=== PATIENT | male | born 1960 | race Caucasian/White ===

== ENCOUNTER 2017-01-11 14:03 | Inpatient (IN) | payer OTHER ==
[~2017-01-11] VITALS: Ht 177.8 cm; Wt 91.5 kg
[2017-01-11] MEDS ORDERED: PROP20 PO (14:18)
[2017-01-11 15:34] LABS: BASOPHILS % (AUTO) 0.8 % (0.0-2.0); EOSINOPHILS % (AUTO) 3.9 % (1.0-6.0); HEMATOCRIT 42.4 % (41-53); HEMOGLOBIN 13.6 g/dL (13.5-17.5); LYMPHOCYTES # (AUTO) 2.1 K/uL (1.0-4.8); LYMPHOCYTES % (AUTO) 38.1 % (22.0-44.0); MEAN CORPUSCULAR HEMOGLOBIN 31.4 pg (26.0-34.0); MEAN CORPUSCULAR HGB CONC 32.2 G/dL (31.0-37.0); MEAN CORPUSCULAR VOLUME 98 fL (80-100); MONOCYTES # (AUTO) 0.8 K/uL (0.1-1.0); MONOCYTES % (AUTO) 14.3 % (2.0-9.0); NEUTROPHILS # (AUTO) 2.4 K/uL (1.8-7.7); NEUTROPHILS % (AUTO) 42.9 % (40.0-70.0); PLATELET COUNT (AUTO) 115 K/uL (150-450); RED BLOOD CELL COUNT(AUTO) 4.34 MIL/uL (4.50-5.90); RED CELL DISTRIBUTION WIDTH 17.7 % (11.5-14.5); WHITE BLOOD COUNT (AUTO) 5.6 K/uL (4.5-11.0)
[2017-01-11 15:40] LABS: ANION GAP 9 mmol/L (8-16); CALCIUM, TOTAL 7.8 mg/dL (8.8-10.5); CARBON DIOXIDE 23 mmol/L (22-29); CHLORIDE 109 mmol/L (98-107); CREATININE 1.12 mg/dL (0.60-1.30); GLOMERULAR FILTR. RATE CALC > 60 mL/min (>60); POTASSIUM 3.9 mmol/L (3.5-5.1); SODIUM SERUM 141 mmol/L (136-145); UREA NITROGEN, BLOOD 6 mg/dL (7-18)
[2017-01-11 15:42] LABS: INR 1.3 (0.9-1.1); PROTHROMBIN TIME 13.4 SEC (9.4-11.6)
[2017-01-11 15:47] LABS: AMMONIA 207 umol/L (11-32)
[2017-01-11 15:48] LABS: TROPONIN I < 0.02 ng/mL (0.00-0.05)
[2017-01-11] MEDS ORDERED: LACTULOSE 20 GM/30 ML SOLUTION UDCUP PO ONE (16:00)
[2017-01-11 16:05] LABS: APPEARANCE,URINE CLEAR (CLEAR); GLUCOSE, URINE (UA) NEGATIVE (NEGATIVE); KETONES,URINE NEGATIVE (NEGATIVE); LEUKOCYTE ESTERASE ,URINE SMALL (NEGATIVE); PH,URINE 7.5 (5.0-8.0); PROTEIN,URINE NEGATIVE (NEGATIVE)
[2017-01-11 16:05] LABS: ALANINE AMINOTRANSFERASE 46 U/L (12-78); ASPARTATE AMINOTRANSFERASE 91 U/L (15-37); CREATINE KINASE MB 2.7 ng/mL (0-5); CREATINE KINASE, TOTAL 248 U/L (39-308); TOTAL PROTEIN, SERUM 6.1 g/dL (6.4-8.2)
[2017-01-11 16:13] LABS: ADD UA MICROSCOPIC YES; OCCULT BLOOD,URINE TRACE (NEGATIVE)
[2017-01-11 16:14] LABS: SQUAMOUS EPITHELIAL CELL,UR Rare /LPF (None Seen)
[2017-01-11 16:27] LABS: RBC MORPHOLOGY COMMENT ABNORMAL RBC MORPH
[2017-01-11] MEDS ORDERED: ONDANSETRON HCL 4 MG/2 ML VIAL IVP PRN ×2 (16:45→18:45)
[2017-01-11 17:28] VITALS: BP 138/93
[2017-01-11] MEDS ORDERED: MAGNESIUM HYDROXIDE SUSPENSION 30 ML UDCUP PO PRN (18:45)
[2017-01-11] MEDS ORDERED: 0.9% SODIUM CHLORIDE 10 ML SYRINGE IVP PRN (18:45)
[2017-01-11] MEDS: PANTOPRAZOLE SODIUM 40 MG/VIAL IVP SCH (19:02)
[2017-01-11] MEDS: PROPRANOLOL HCL 20 MG TABLET PO SCH (19:02)
[2017-01-11] MEDS: LACTULOSE 20 GM/30 ML SOLUTION UDCUP PO SCH ×2 (19:02→23:44)
[2017-01-11 19:52] VITALS: BP 147/95
[2017-01-11] MEDS ORDERED: SODIUM CHLORIDE 0.9% 250 ML IV ONE (20:08)
[2017-01-11] MEDS: CefTRIAXone 1 GM/DEXTROSE 50 ML IV SCH (20:26)
[2017-01-11] MEDS: DOCUSATE SODIUM 100 MG CAPSULE PO SCH (20:26)
[2017-01-12 00:15] VITALS: BP 144/88
[2017-01-12 04:18] VITALS: BP 128/63
[2017-01-12] MEDS: LACTULOSE 20 GM/30 ML SOLUTION UDCUP PO SCH ×4 (06:19→23:44)
[2017-01-12 07:04] LABS: BASOPHILS # (AUTO) 0.03 K/uL (0.00-0.20); BASOPHILS % (AUTO) 0.5 % (0.0-2.0); EOSINOPHILS # (AUTO) 0.22 K/uL (0.00-0.70); EOSINOPHILS % (AUTO) 4.12 % (1.0-6.0); HEMATOCRIT 39.6 % (41-53); HEMOGLOBIN 13.2 g/dL (13.5-17.5); LYMPHOCYTES # (AUTO) 1.7 K/uL (1.0-4.8); LYMPHOCYTES % (AUTO) 31.9 % (22.0-44.0); MEAN CORPUSCULAR HEMOGLOBIN 32.6 pg (26.0-34.0); MEAN CORPUSCULAR HGB CONC 33.4 G/dL (31.0-37.0); MEAN CORPUSCULAR VOLUME 98 fL (80-100); MONOCYTES # (AUTO) 0.5 K/uL (0.1-1.0); MONOCYTES % (AUTO) 9.3 % (2.0-9.0); NEUTROPHILS # (AUTO) 2.8 K/uL (1.8-7.7); NEUTROPHILS % (AUTO) 54.1 % (40.0-70.0); PLATELET COUNT (AUTO) 118 K/uL (150-450); RED BLOOD CELL COUNT(AUTO) 4.05 MIL/uL (4.50-5.90); RED CELL DISTRIBUTION WIDTH 17.7 % (11.5-14.5); WHITE BLOOD COUNT (AUTO) 5.2 K/uL (4.5-11.0)
[2017-01-12 07:27] VITALS: BP 101/64
[2017-01-12 07:33] LABS: ANION GAP 8 mmol/L (8-16); CALCIUM, TOTAL 7.6 mg/dL (8.8-10.5); CARBON DIOXIDE 21 mmol/L (22-29); CHLORIDE 114 mmol/L (98-107); CREATININE 0.96 mg/dL (0.60-1.30); GLOMERULAR FILTR. RATE CALC > 60 mL/min (>60); POTASSIUM 3.8 mmol/L (3.5-5.1); SODIUM SERUM 143 mmol/L (136-145); UREA NITROGEN, BLOOD 5 mg/dL (7-18)
[2017-01-12] MEDS: PROPRANOLOL HCL 20 MG TABLET PO SCH (08:15)
[2017-01-12] MEDS: PANTOPRAZOLE SODIUM 40 MG/VIAL IVP SCH (08:15)
[2017-01-12] MEDS: DOCUSATE SODIUM 100 MG CAPSULE PO SCH ×3 (08:15→20:05)
[2017-01-12 10:23] LABS: RBC MORPHOLOGY COMMENT ABNORMAL RBC MORPH
[2017-01-12 11:36] VITALS: BP 154/76
[2017-01-12 15:40] VITALS: BP 132/80
[2017-01-12] MEDS: RIFAXIMIN 550 MG TABLET PO SCH ×2 (16:21→20:04)
[2017-01-12] MEDS: CefTRIAXone 1 GM/DEXTROSE 50 ML IV SCH (17:36)
[2017-01-12 19:29] VITALS: BP 131/85
[2017-01-13 00:30] VITALS: BP 126/75
[2017-01-13 04:30] VITALS: BP 129/85
[2017-01-13] MEDS: LACTULOSE 20 GM/30 ML SOLUTION UDCUP PO SCH ×3 (05:50→18:22)
[2017-01-13 07:51] VITALS: BP 131/80
[2017-01-13] MEDS: DOCUSATE SODIUM 100 MG CAPSULE PO SCH (09:00)
[2017-01-13] MEDS: RIFAXIMIN 550 MG TABLET PO SCH ×2 (09:44→16:27)
[2017-01-13] MEDS: PROPRANOLOL HCL 20 MG TABLET PO SCH (09:44)
[2017-01-13] MEDS: PANTOPRAZOLE SODIUM 40 MG/VIAL IVP SCH (09:44)
[2017-01-13 11:29] VITALS: BP 129/74
[2017-01-13] MEDS ORDERED: CIPR-279 PO (15:03)
[2017-01-13] MEDS ORDERED: LACT30L PO (15:07)
[2017-01-13] MEDS ORDERED: RIFAX550 PO ×4 (15:10→15:17)
[2017-01-13 15:37] VITALS: BP 123/73
== END 2017-01-13 18:30 | disposition home or self-care (01) | DRG 280 ==
LOC: EMS 14:05 → 5N 16:35
PROVIDERS: ADMIT Internal Medicine; ATTEND Internal Medicine
DX: K70.40 Alcoholic hepatic failure without coma (principal); K70.30 Alcoholic cirrhosis of liver without ascites; E43 Unspecified severe protein-calorie malnutrition; D68.4 Acquired coagulation factor deficiency; N39.0 Urinary tract infection, site not specified; I10 Essential (primary) hypertension; F10.10 Alcohol abuse, uncomplicated; F15.10 Other stimulant abuse, uncomplicated; Z68.28 Body mass index [BMI] 28.0-28.9, adult; Z79.899 Other long term (current) drug therapy; Z87.891 Personal history of nicotine dependence
CPT/HCPCS: 87086; 87147; 93005; 97110; 97116; 97162; 97530; 99285; C9113; J0696; J7050

== ENCOUNTER 2017-01-21 02:15 | Inpatient (IN) | payer OTHER ==
[~2017-01-21] VITALS: Ht 172.7 cm; Wt 95.2 kg
[~2017-01-21 02:15] MED LIST: CIPR-279 PO; LACT30L PO; PROP20 PO; RIFAX550 PO
[2017-01-21 03:05] LABS: APPEARANCE,URINE CLEAR (CLEAR); GLUCOSE, URINE (UA) NEGATIVE (NEGATIVE); KETONES,URINE NEGATIVE (NEGATIVE); LEUKOCYTE ESTERASE ,URINE NEGATIVE (NEGATIVE); OCCULT BLOOD,URINE NEGATIVE (NEGATIVE); PROTEIN,URINE NEGATIVE (NEGATIVE)
[2017-01-21 03:07] LABS: ADD UA MICROSCOPIC NO
[2017-01-21 03:40] LABS: BASOPHILS % (AUTO) 1.7 % (0.0-2.0); EOSINOPHILS % (AUTO) 3.4 % (1.0-6.0); HEMATOCRIT 39.2 % (41-53); HEMOGLOBIN 12.7 g/dL (13.5-17.5); LYMPHOCYTES # (AUTO) 1.2 K/uL (1.0-4.8); LYMPHOCYTES % (AUTO) 24.2 % (22.0-44.0); MEAN CORPUSCULAR HEMOGLOBIN 32.2 pg (26.0-34.0); MEAN CORPUSCULAR HGB CONC 32.5 G/dL (31.0-37.0); MEAN CORPUSCULAR VOLUME 99 fL (80-100); MONOCYTES # (AUTO) 0.4 K/uL (0.1-1.0); MONOCYTES % (AUTO) 8.2 % (2.0-9.0); NEUTROPHILS % (AUTO) 62.5 % (40.0-70.0); PLATELET COUNT (AUTO) 100 K/uL (150-450); RED BLOOD CELL COUNT(AUTO) 3.96 MIL/uL (4.50-5.90); WHITE BLOOD COUNT (AUTO) 4.8 K/uL (4.5-11.0)
[2017-01-21 03:49] LABS: ANION GAP 9 mmol/L (8-16); CARBON DIOXIDE 23 mmol/L (22-29); CHLORIDE 111 mmol/L (98-107); CREATININE 1.13 mg/dL (0.60-1.30); GLOMERULAR FILTR. RATE CALC > 60 mL/min (>60); POTASSIUM 3.7 mmol/L (3.5-5.1); SODIUM SERUM 143 mmol/L (136-145); UREA NITROGEN, BLOOD 7 mg/dL (7-18)
[2017-01-21 03:57] LABS: ALANINE AMINOTRANSFERASE 41 U/L (12-78); ASPARTATE AMINOTRANSFERASE 88 U/L (15-37); BILIRUBIN,TOTAL 2.5 mg/dL (0.1-1.0); TOTAL PROTEIN, SERUM 5.7 g/dL (6.4-8.2)
[2017-01-21 03:58] LABS: TROPONIN I 0.02 ng/mL (0.00-0.05)
[2017-01-21 03:59] LABS: RBC MORPHOLOGY COMMENT ABNORMAL RBC MORPH
[2017-01-21] MEDS ORDERED: LACTULOSE 20 GM/30 ML SOLUTION UDCUP PO ONE (04:15)
[2017-01-21] MEDS ORDERED: ONDANSETRON HCL 4 MG/2 ML VIAL IVP PRN (04:45)
[2017-01-21] MEDS ORDERED: 0.9% SODIUM CHLORIDE 10 ML SYRINGE IVP PRN (04:45)
[2017-01-21] MEDS ORDERED: ONDANSETRON HCL 4 MG/2 ML VIAL IVP ONE (04:45)
[2017-01-21 12:01] LABS: GLUCOSE,POINT OF CARE 97 MG/DL (70-110)
[2017-01-21 20:06] VITALS: BP 124/83
[2017-01-21] MEDS: LACTULOSE 20 GM/30 ML SOLUTION UDCUP PO SCH (23:38)
[2017-01-21 23:40] VITALS: BP 113/75
[2017-01-22 04:51] VITALS: BP 131/79
[2017-01-22] MEDS: LACTULOSE 20 GM/30 ML SOLUTION UDCUP PO SCH ×4 (06:05→23:37)
[2017-01-22 06:29] LABS: BASOPHILS % (AUTO) 0.7 % (0.0-2.0); EOSINOPHILS % (AUTO) 5.7 % (1.0-6.0); HEMATOCRIT 38.9 % (41-53); HEMOGLOBIN 12.7 g/dL (13.5-17.5); LYMPHOCYTES # (AUTO) 1.9 K/uL (1.0-4.8); LYMPHOCYTES % (AUTO) 34.1 % (22.0-44.0); MEAN CORPUSCULAR HEMOGLOBIN 32.5 pg (26.0-34.0); MEAN CORPUSCULAR HGB CONC 32.5 G/dL (31.0-37.0); MEAN CORPUSCULAR VOLUME 100 fL (80-100); MONOCYTES # (AUTO) 0.6 K/uL (0.1-1.0); MONOCYTES % (AUTO) 11.3 % (2.0-9.0); NEUTROPHILS # (AUTO) 2.7 K/uL (1.8-7.7); NEUTROPHILS % (AUTO) 48.2 % (40.0-70.0); PLATELET COUNT (AUTO) 97 K/uL (150-450); RED BLOOD CELL COUNT(AUTO) 3.89 MIL/uL (4.50-5.90); RED CELL DISTRIBUTION WIDTH 17.5 % (11.5-14.5); WHITE BLOOD COUNT (AUTO) 5.6 K/uL (4.5-11.0)
[2017-01-22] MEDS ORDERED: ONDANSETRON HCL 4 MG/2 ML VIAL IVP PRN (06:45)
[2017-01-22] MEDS ORDERED: OxyCODONE HCL/ACETAMINOPHEN 5-325 MG TABLET PO PRN (06:45)
[2017-01-22] MEDS ORDERED: 0.9% SODIUM CHLORIDE 10 ML SYRINGE IVP PRN (06:45)
[2017-01-22 06:50] LABS: ANION GAP 7 mmol/L (8-16); CALCIUM, TOTAL 7.9 mg/dL (8.8-10.5); CARBON DIOXIDE 25 mmol/L (22-29); CHLORIDE 111 mmol/L (98-107); CREATININE 1.03 mg/dL (0.60-1.30); GLOMERULAR FILTR. RATE CALC > 60 mL/min (>60); POTASSIUM 3.9 mmol/L (3.5-5.1); SODIUM SERUM 143 mmol/L (136-145); UREA NITROGEN, BLOOD 6 mg/dL (7-18)
[2017-01-22 07:47] VITALS: BP 146/93
[2017-01-22] MEDS: PROPRANOLOL HCL 20 MG TABLET PO SCH (07:54)
[2017-01-22] MEDS: RIFAXIMIN 550 MG TABLET PO SCH ×2 (07:54→20:11)
[2017-01-22] MEDS: SPIRONOLACTONE 25 MG TABLET PO SCH (07:54)
[2017-01-22] MEDS: PANTOPRAZOLE SODIUM 40 MG/VIAL IVP SCH (07:54)
[2017-01-22] MEDS: DOCUSATE SODIUM 100 MG CAPSULE PO SCH ×2 (07:54→20:11)
[2017-01-22 11:40] VITALS: BP 130/85
[2017-01-22 16:02] VITALS: BP 130/77
[2017-01-22] MEDS: OxyCODONE HCL/ACETAMINOPHEN 5-325 MG TABLET PO PRN ×2 (16:12→20:12)
[2017-01-22 19:41] VITALS: BP 135/84
[2017-01-22 23:31] VITALS: BP 116/74
[2017-01-23 05:15] VITALS: BP 120/74
[2017-01-23] MEDS: LACTULOSE 20 GM/30 ML SOLUTION UDCUP PO SCH ×4 (05:26→23:41)
[2017-01-23 06:17] LABS: BASOPHILS # (AUTO) 0.05 K/uL (0.00-0.20); BASOPHILS % (AUTO) 0.9 % (0.0-2.0); EOSINOPHILS # (AUTO) 0.38 K/uL (0.00-0.70); EOSINOPHILS % (AUTO) 6.64 % (1.0-6.0); HEMATOCRIT 37.9 % (41-53); HEMOGLOBIN 12.3 g/dL (13.5-17.5); LYMPHOCYTES # (AUTO) 1.9 K/uL (1.0-4.8); LYMPHOCYTES % (AUTO) 33.7 % (22.0-44.0); MEAN CORPUSCULAR HEMOGLOBIN 32.5 pg (26.0-34.0); MEAN CORPUSCULAR HGB CONC 32.5 G/dL (31.0-37.0); MEAN CORPUSCULAR VOLUME 100 fL (80-100); MONOCYTES # (AUTO) 0.7 K/uL (0.1-1.0); MONOCYTES % (AUTO) 11.9 % (2.0-9.0); NEUTROPHILS # (AUTO) 2.7 K/uL (1.8-7.7); NEUTROPHILS % (AUTO) 46.8 % (40.0-70.0); PLATELET COUNT (AUTO) 101 K/uL (150-450); RED BLOOD CELL COUNT(AUTO) 3.79 MIL/uL (4.50-5.90); WHITE BLOOD COUNT (AUTO) 5.8 K/uL (4.5-11.0)
[2017-01-23 06:22] LABS: ANION GAP 6 mmol/L (8-16); CALCIUM, TOTAL 7.7 mg/dL (8.8-10.5); CARBON DIOXIDE 25 mmol/L (22-29); CHLORIDE 108 mmol/L (98-107); CREATININE 1.03 mg/dL (0.60-1.30); GLOMERULAR FILTR. RATE CALC > 60 mL/min (>60); POTASSIUM 3.9 mmol/L (3.5-5.1); SODIUM SERUM 139 mmol/L (136-145); UREA NITROGEN, BLOOD 5 mg/dL (7-18)
[2017-01-23 07:04] VITALS: BP 122/77
[2017-01-23 07:46] LABS: RBC MORPHOLOGY COMMENT ABNORMAL RBC MORPH
[2017-01-23] MEDS: PANTOPRAZOLE SODIUM 40 MG/VIAL IVP SCH (07:52)
[2017-01-23] MEDS: PANTOPRAZOLE SODIUM 40 MG DR TABLET PO SCH (08:58)
[2017-01-23] MEDS: SPIRONOLACTONE 25 MG TABLET PO SCH (08:58)
[2017-01-23] MEDS: PROPRANOLOL HCL 20 MG TABLET PO SCH (08:58)
[2017-01-23] MEDS: RIFAXIMIN 550 MG TABLET PO SCH ×2 (08:58→20:14)
[2017-01-23] MEDS: DOCUSATE SODIUM 100 MG CAPSULE PO SCH ×2 (08:58→20:14)
[2017-01-23] MEDS ORDERED: LACTULOSE 20 GM/30 ML SOLUTION UDCUP PO SCH (09:30)
[2017-01-23 11:18] VITALS: BP 146/80
[2017-01-23 15:32] VITALS: BP 113/66
[2017-01-23 20:10] VITALS: BP 125/79
[2017-01-23] MEDS: OxyCODONE HCL/ACETAMINOPHEN 5-325 MG TABLET PO PRN ×2 (20:14→23:41)
[2017-01-23 23:33] VITALS: BP 98/55
[2017-01-24 05:00] VITALS: BP 114/72
[2017-01-24] MEDS: LACTULOSE 20 GM/30 ML SOLUTION UDCUP PO SCH ×2 (05:44→12:32)
[2017-01-24] MEDS: OxyCODONE HCL/ACETAMINOPHEN 5-325 MG TABLET PO PRN ×2 (05:47→09:26)
[2017-01-24 07:23] VITALS: BP 132/91
[2017-01-24] MEDS: RIFAXIMIN 550 MG TABLET PO SCH (09:15)
[2017-01-24] MEDS: SPIRONOLACTONE 25 MG TABLET PO SCH (09:15)
[2017-01-24] MEDS: DOCUSATE SODIUM 100 MG CAPSULE PO SCH (09:15)
[2017-01-24] MEDS: PROPRANOLOL HCL 20 MG TABLET PO SCH (09:15)
[2017-01-24] MEDS: PANTOPRAZOLE SODIUM 40 MG DR TABLET PO SCH (09:15)
[2017-01-24 11:08] LABS: INR 1.4 (0.9-1.1)
[2017-01-24 11:54] VITALS: BP 157/99
[2017-01-24 12:00] VITALS: BP 104/53
[2017-01-24 15:36] VITALS: BP 135/96
== END 2017-01-24 17:00 | disposition home or self-care (01) | DRG 279 ==
LOC: EMS 02:16 → 6N 18:18
PROVIDERS: ADMIT Internal Medicine; ATTEND Internal Medicine
DX: K72.90 Hepatic failure, unspecified without coma (principal); E43 Unspecified severe protein-calorie malnutrition; I42.0 Dilated cardiomyopathy; D68.9 Coagulation defect, unspecified; I50.9 Heart failure, unspecified; I11.0 Hypertensive heart disease with heart failure; K70.30 Alcoholic cirrhosis of liver without ascites; R79.1 Abnormal coagulation profile; F15.10 Other stimulant abuse, uncomplicated; F10.10 Alcohol abuse, uncomplicated; Z79.899 Other long term (current) drug therapy; Z91.14 Patient's other noncompliance with medication regimen; Z68.31 Body mass index [BMI] 31.0-31.9, adult; Z87.891 Personal history of nicotine dependence
CPT/HCPCS: 70450; 82962; 87081; 93005; 96374; 99285; C9113; G0480; J2405

== ENCOUNTER 2017-02-26 12:56 | Inpatient (IN) | payer OTHER ==
[~2017-02-26] VITALS: Ht 172.7 cm; Wt 89.2 kg
[~2017-02-26 12:56] MED LIST changes: -CIPR-279 PO; -RIFAX550 PO
[2017-02-26] MEDS ORDERED: FURO40 PO (13:11)
[2017-02-26] MEDS ORDERED: RIFA200T7 PO (13:27)
[2017-02-26] MEDS ORDERED: KDUR10 PO (13:27)
[2017-02-26 14:41] LABS: BASOPHILS % (AUTO) 0.7 % (0.0-2.0); HEMATOCRIT 40.9 % (41-53); HEMOGLOBIN 13.6 g/dL (13.5-17.5); LYMPHOCYTES # (AUTO) 1.6 K/uL (1.0-4.8); MEAN CORPUSCULAR HEMOGLOBIN 32.5 pg (26.0-34.0); MEAN CORPUSCULAR HGB CONC 33.3 G/dL (31.0-37.0); MEAN CORPUSCULAR VOLUME 98 fL (80-100); MONOCYTES # (AUTO) 0.7 K/uL (0.1-1.0); MONOCYTES % (AUTO) 13.4 % (2.0-9.0); NEUTROPHILS # (AUTO) 2.5 K/uL (1.8-7.7); NEUTROPHILS % (AUTO) 48.9 % (40.0-70.0); PLATELET COUNT (AUTO) 102 K/uL (150-450); RED BLOOD CELL COUNT(AUTO) 4.19 MIL/uL (4.50-5.90); RED CELL DISTRIBUTION WIDTH 17.5 % (11.5-14.5); WHITE BLOOD COUNT (AUTO) 5.1 K/uL (4.5-11.0)
[2017-02-26 14:49] LABS: ANION GAP 9 mmol/L (8-16); CALCIUM, TOTAL 8.1 mg/dL (8.8-10.5); CARBON DIOXIDE 21 mmol/L (22-29); CHLORIDE 111 mmol/L (98-107); CREATININE 1.14 mg/dL (0.60-1.30); GLOMERULAR FILTR. RATE CALC > 60 mL/min (>60); POTASSIUM 3.7 mmol/L (3.5-5.1); SODIUM SERUM 141 mmol/L (136-145); UREA NITROGEN, BLOOD 6 mg/dL (7-18)
[2017-02-26 14:55] LABS: ALANINE AMINOTRANSFERASE 39 U/L (12-78); ASPARTATE AMINOTRANSFERASE 89 U/L (15-37); BILIRUBIN,TOTAL 3.6 mg/dL (0.1-1.0)
[2017-02-26] MEDS ORDERED: ONDANSETRON HCL 4 MG/2 ML VIAL IVP PRN (15:15)
[2017-02-26] MEDS ORDERED: LACTULOSE 20 GM/30 ML SOLUTION UDCUP PO ONE (15:30)
[2017-02-26] MEDS ORDERED: MAGNESIUM HYDROXIDE SUSPENSION 30 ML UDCUP PO PRN (16:15)
[2017-02-26] MEDS ORDERED: ALBUTEROL SULFATE 2.5 MG/0.5 ML NEB SOLUTION NEB PRN (16:15)
[2017-02-26] MEDS: PHYTONADIONE 10 MG/1 ML AMP SQ SCH (16:34)
[2017-02-26 17:33] VITALS: BP 151/96
[2017-02-26 17:50] LABS: INR 1.4 (0.9-1.1)
[2017-02-26 19:31] VITALS: BP 133/84
[2017-02-26] MEDS: DOCUSATE SODIUM 100 MG CAPSULE PO SCH (19:58)
[2017-02-26] MEDS: SPIRONOLACTONE 50 MG TABLET PO SCH (19:58)
[2017-02-26] MEDS: FUROSEMIDE 20 MG TABLET PO SCH (19:58)
[2017-02-26] MEDS: LACTULOSE 20 GM/30 ML SOLUTION UDCUP PO PRN (21:53)
[2017-02-26 23:40] VITALS: BP 128/89
[2017-02-27 04:21] VITALS: BP 125/66
[2017-02-27] MEDS: LACTULOSE 20 GM/30 ML SOLUTION UDCUP PO PRN ×2 (06:43→20:05)
[2017-02-27 07:27] VITALS: BP 137/86
[2017-02-27 08:22] LABS: BASOPHILS % (AUTO) 0.7 % (0.0-2.0); EOSINOPHILS % (AUTO) 6.5 % (1.0-6.0); HEMATOCRIT 39.2 % (41-53); HEMOGLOBIN 13.4 g/dL (13.5-17.5); LYMPHOCYTES # (AUTO) 1.6 K/uL (1.0-4.8); MEAN CORPUSCULAR HEMOGLOBIN 33.8 pg (26.0-34.0); MEAN CORPUSCULAR HGB CONC 34.3 G/dL (31.0-37.0); MEAN CORPUSCULAR VOLUME 99 fL (80-100); MONOCYTES # (AUTO) 0.5 K/uL (0.1-1.0); MONOCYTES % (AUTO) 11.2 % (2.0-9.0); NEUTROPHILS # (AUTO) 2.2 K/uL (1.8-7.7); NEUTROPHILS % (AUTO) 47.6 % (40.0-70.0); RED BLOOD CELL COUNT(AUTO) 3.98 MIL/uL (4.50-5.90); RED CELL DISTRIBUTION WIDTH 17.5 % (11.5-14.5); WHITE BLOOD COUNT (AUTO) 4.7 K/uL (4.5-11.0)
[2017-02-27 08:31] LABS: INR 1.5 (0.9-1.1); PROTHROMBIN TIME 15.5 SEC (9.4-11.6)
[2017-02-27 08:35] LABS: ALANINE AMINOTRANSFERASE 36 U/L (12-78); ALBUMIN 1.8 g/dL (3.4-5.0); ANION GAP 8 mmol/L (8-16); ASPARTATE AMINOTRANSFERASE 79 U/L (15-37); BILIRUBIN,TOTAL 2.7 mg/dL (0.1-1.0); CALCIUM, TOTAL 7.3 mg/dL (8.8-10.5); CARBON DIOXIDE 23 mmol/L (22-29); CHLORIDE 107 mmol/L (98-107); CREATININE 0.97 mg/dL (0.60-1.30); GLOMERULAR FILTR. RATE CALC > 60 mL/min (>60); POTASSIUM 3.4 mmol/L (3.5-5.1); SODIUM SERUM 138 mmol/L (136-145); TOTAL PROTEIN, SERUM 5.3 g/dL (6.4-8.2); UREA NITROGEN, BLOOD 4 mg/dL (7-18)
[2017-02-27] MEDS: DOCUSATE SODIUM 100 MG CAPSULE PO SCH ×2 (08:37→20:05)
[2017-02-27] MEDS: PHYTONADIONE 10 MG/1 ML AMP SQ SCH (08:37)
[2017-02-27] MEDS: PANTOPRAZOLE SODIUM 40 MG DR TABLET PO SCH (08:37)
[2017-02-27] MEDS: FUROSEMIDE 20 MG TABLET PO SCH ×2 (08:37→20:05)
[2017-02-27] MEDS: SPIRONOLACTONE 50 MG TABLET PO SCH (08:37)
[2017-02-27 09:13] LABS: PLATELET COUNT (AUTO) 68 K/uL (150-450)
[2017-02-27 09:14] LABS: RBC MORPHOLOGY COMMENT ABNORMAL RBC MORPH
[2017-02-27 11:38] VITALS: BP 128/82
[2017-02-27 15:54] VITALS: BP 132/84
[2017-02-27 20:07] VITALS: BP 146/88
[2017-02-27 23:30] VITALS: BP 126/81
[2017-02-28 03:30] VITALS: BP 118/67
[2017-02-28] MEDS: LACTULOSE 20 GM/30 ML SOLUTION UDCUP PO PRN (04:58)
[2017-02-28] MEDS: PANTOPRAZOLE SODIUM 40 MG DR TABLET PO SCH (07:51)
[2017-02-28] MEDS: SPIRONOLACTONE 50 MG TABLET PO SCH (07:51)
[2017-02-28] MEDS: FUROSEMIDE 20 MG TABLET PO SCH (07:51)
[2017-02-28] MEDS: DOCUSATE SODIUM 100 MG CAPSULE PO SCH (07:51)
[2017-02-28] MEDS: PHYTONADIONE 10 MG/1 ML AMP SQ SCH (07:52)
[2017-02-28 07:53] VITALS: BP 151/78
[2017-02-28 10:18] LABS: ANION GAP 7 mmol/L (8-16); CALCIUM, TOTAL 7.8 mg/dL (8.8-10.5); CARBON DIOXIDE 23 mmol/L (22-29); CHLORIDE 108 mmol/L (98-107); CREATININE 1.01 mg/dL (0.60-1.30); GLOMERULAR FILTR. RATE CALC > 60 mL/min (>60); POTASSIUM 4.1 mmol/L (3.5-5.1); SODIUM SERUM 138 mmol/L (136-145); UREA NITROGEN, BLOOD 5 mg/dL (7-18)
[2017-02-28 11:40] VITALS: BP 124/79
[2017-02-28 15:30] VITALS: BP 123/78
== END 2017-02-28 17:30 | disposition home or self-care (01) | DRG 279 ==
LOC: EMS 12:59 → 6N 15:57
PROVIDERS: ADMIT Internal Medicine; ATTEND Internal Medicine
DX: K72.90 Hepatic failure, unspecified without coma (principal); E44.0 Moderate protein-calorie malnutrition; D68.9 Coagulation defect, unspecified; K74.60 Unspecified cirrhosis of liver; I10 Essential (primary) hypertension; B19.20 Unspecified viral hepatitis C without hepatic coma; Z59.0 Homelessness; Z87.891 Personal history of nicotine dependence; Z87.440 Personal history of urinary (tract) infections; Z68.29 Body mass index [BMI] 29.0-29.9, adult
CPT/HCPCS: 96374; 99285; J2405; J3430